=== PATIENT | male | born 1940 | race Caucasian/White ===

== ENCOUNTER → 2017-03-11 | Outpatient (CLI) | payer MEDICARE, BC ==
[~2017-03-11] MED LIST: ASPIRIN EC81 MG PO; BACTRIM DS1 TAB PO; CENTRUM COMPLE1 EACH PO; FLOMAX0.4 MG PO; LOTENSIN20 MG PO; MYSOLINE250 MG PO; TYLENOL/COD#31 TAB PO; VITAMIN D1000 UNIT PO
--- NOTE | ~2017-03-11 | ESTC ---
Cardiac Perfusion Imaging Demographics Patient Name YCEENIA Dickson Gender Male Patient Number [id number] Race Visit Number [id number] Ethnicity or Corporate ID Room Number Accession Number [id number] Height 69 inches Date of 1940 Weight 245 pounds Chelsea Pope MD Interpreting Elizabeth Jefferson MD Date of study 03/11/2017 Physician Supervising /BHAVANI Dickson NM Technologist Leeanne Gallegos APRN Ordering Physician Elizabeth Jefferson MD Stress water technician Stress ECG Reading Timothy Dickson Nurse Olga Urbina RN Physician NATALIA Daly The procedure was explained in detail to the patient. Risks, complications and alternative treatments were reviewed. Written consent was obtained. Medications Reviewed with Patient prior to Procedure. Procedure Admit Source:Other. Procedure Type: Nuclear Stress Test:Cardiolite Stress Test Procedure Start time: 03/11/2017 00:00 Risk Factors The patient risk factors include:obesity, former tobacco use and chronic lung disease. Conclusions Summary Cardiolite SPECT images demonstrate homogenous uptake of radioactive tracer. No evidence of inducible reversible defect and no evidence of underlying fixed defect. TID is mildly increased at 1.14 Gated images demonstrate normal left ventricular systolic function without inducible wall motion abnormalities. LVEF is 71% Stress Protocols Resting ECG RSR without ST or T wave changes Resting HR:62 bpm Resting BP:147/62 mmHg Pre-stress physical exam: Complains of SOB. Patient assessed by Sesar Aguirre APRN prior to testing. Stress Protocol:Pharmacologic Peak BP:137/65 mmHg HR response: Appropriate Predicted HR: 144 bpm BP response: Appropriate Reason for termination:Infusion complete ECG Findings Sinus Rhythm Arrhythmias No rhythm abnormality. Symptoms No symptoms with Lexiscan infusion. Stress Interpretation Appropriate hemodynamic response to Lexiscan. No significant ST-T wave changes with Lexiscan. ECG portion is negative for ischemia by diagnostic criteria. Stress supervision and interpretation provided by Veronique Aguirre APRN . Imaging Results Applied corrections - Motion correction applied High risk findings Summed scores - Summed stress score: 9 - Summed rest score: 7 - Summed difference score: 2 Stress ejection Ejection fraction:71 % EDV :89 ml ESV :26 ml Stroke volume :63 ml LV mass :134 gr Imaging Protocols Rest Stress Isotope:Tc99m Sestamibi IV Isotope: Tc99m Sestamibi IV Isotope dose:15 mCi Isotope dose:46.8 mCi Date:03/11/2017 07:50 Date:03/11/2017 10:40 Technique: SPECT Technique: Gated Supine SPECT Supine Procedure Medications - Regadenoson (Lexiscan) 0.4 mg IV over 10-15 sec. . Medical History Admission Data Admission date: 03/11/2017 Admission Time: 07:29 Hospital Status: Outpatient. Signatures dtt: Ronny Johnson (cardio) dtd: 03/11/17 0000 Physician Self Edit
== END | disposition disaster alternative care site (69) ==
LOC: GRAD 07:29
DX: R06.02 Shortness of breath (principal)
CPT/HCPCS: A9500; J2785